=== PATIENT | female | born 1945 | race Caucasian/White ===

== ENCOUNTER 2016-08-28 20:15 | Emergency (ER) | payer MEDICARE ==
[2016-08-28 22:30] LABS: Basophils % (Auto) 0.4 % (0.0-1.8); Hematocrit 44.9 % (30.3-42.9); Hemoglobin 14.8 gm/dl (10.1-14.3); Mean Corpuscular HGB Conc 33 % (30-34); Mean Corpuscular Hemoglobin 29 pg (28-32); Mean Corpuscular Volume 88 fl (79-97); Platelet Count 234 K/mm3 (140-440); Red Cell Distribution Width 12.6 % (13.2-15.2); White Blood Count 13.7 K/mm3 (4.5-11.0)
[2016-08-28 22:47] LABS: Alanine Aminotransferase 23 units/L (7-56); Albumin 4.3 g/dL (3.9-5); Albumin/Globulin Ratio 1.2 %; Alkaline Phosphatase 78 units/L (35-129); Anion Gap 19 mmol/L; Blood Urea Nitrogen 13 mg/dL (7-17); Carbon Dioxide 24 mmol/L (22-30); Chloride 92.5 mmol/L (98-107); Glucose 134 mg/dL (65-100); Lipase 24 units/L (13-60); Potassium 3.7 mmol/L (3.6-5.0); Sodium 132 mmol/L (137-145); Total Protein 7.8 g/dL (6.3-8.2)
[2016-08-29] MEDS ORDERED: ZOFRAN ONE (00:15)
[2016-08-29 00:26] LABS: Bacteria,Urine 1+ /HPF (Negative); Bilirubin,Urine NEG (Negative); Blood,Urine MOD (Negative); Ketones,Urine 20 mg/dL (Negative); Leukocyte Esterase,Urine TR (Negative); Mucus,Urine 2+ /HPF; Nitrite,Urine NEG (Negative); Urobilinogen,Urine < 2.0 mg/dL (<2.0)
[2016-08-29 00:29] LABS: Protein,Urine >500 mg/dL (Negative)
--- NOTE | 2016-08-29 00:35 | Emergency Department Report ---
ED Abdominal Pain HPI - General Chief Complaint: Abdominal Pain Stated Complaint: STOMACH PAIN Time Seen by Provider: 08/29/16 00:30 Source: patient, family Mode of arrival: Wheelchair Limitations: No Limitations - History of Present Illness Initial Comments: This is a pleasant 71-year-old female with 24-hour history of right upper quadrant abdominal pain. She describes no radiation with this. She denies no migration as well. She states that she has had pains like this in the past but infrequently. This is the worst it is been. She states she did try some Tylenol at home without any significant improvement of her discomfort. She is still intolerance to food at home. She denies any diarrhea or vomiting associated with this. He denies any fever. No trauma is reported as well. No dysuria is reported. Rates her pain as moderate. Denies anything changes the pain.*History from a surgical standpoint is only significant for C-sections. - Related Data Previous Rx's Medication Instructions Recorded Last Taken Type HYDROcodone/APAP 5-325 [Hinckley 1 each PO Q6HR PRN #30 tablet 08/29/16 Unknown Rx 5/325] Ondansetron [Zofran TAB] 4 mg PO Q8HR PRN #10 tablet 08/29/16 Unknown Rx Allergies Allergy/AdvReac Type Severity Reaction Status Date / Time No Known Allergies Allergy Verified 08/28/16 21:47 ED Review of Systems ROS: Stated complaint: STOMACH PAIN Other details as noted in HPI Comment: All other systems reviewed and negative Constitutional: denies: chills, fever Eyes: denies: eye pain, eye discharge, vision change ENT: denies: ear pain, throat pain Respiratory: denies: cough, shortness of breath, wheezing Cardiovascular: denies: chest pain, palpitations Endocrine: no symptoms reported Gastrointestinal: abdominal pain. denies: nausea, diarrhea Genitourinary: denies: urgency, dysuria, discharge Musculoskeletal: denies: back pain, joint swelling, arthralgia Skin: denies: rash, lesions Neurological: denies: headache, weakness, paresthesias Psychiatric: denies: anxiety, depression Hematological/Lymphatic: denies: easy bleeding, easy bruising ED Past Medical Hx - Past Medical History Previous Medical History?: No - Surgical History Past Surgical History?: No - Social History Smoking Status: Never Smoker Substance Use Type: Prescribed - Medications Home Medications: Home Medications Medication Instructions Recorded Confirmed Last Taken Type HYDROcodone/APAP 5-325 [Hinckley 1 each PO Q6HR PRN #30 tablet 08/29/16 Unknown Rx 5/325] Ondansetron [Zofran TAB] 4 mg PO Q8HR PRN #10 tablet 08/29/16 Unknown Rx ED Physical Exam - General Limitations: No Limitations General appearance: alert, in no apparent distress - Head Head exam: Present: atraumatic, normocephalic - Eye Eye exam: Present: normal appearance, EOMI. Absent: scleral icterus - ENT ENT exam: Present: normal exam, normal orophraynx, mucous membranes moist - Neck Neck exam: Present: normal inspection, full ROM. Absent: meningismus, lymphadenopathy - Respiratory Respiratory exam: Present: normal lung sounds bilaterally. Absent: respiratory distress, wheezes - Cardiovascular Cardiovascular Exam: Present: regular rate, normal rhythm. Absent: systolic murmur, diastolic murmur, rubs, gallop - GI/Abdominal GI/Abdominal exam: Present: soft, tenderness (mild right upper quadrant with equivocal Hurtado sign.), normal bowel sounds. Absent: guarding, rebound - Extremities Exam Extremities exam: Present: normal inspection. Absent: tenderness, pedal edema, calf tenderness - Back Exam Back exam: Present: normal inspection - Neurological Exam Neurological exam: Present: alert, oriented X3 - Psychiatric Psychiatric exam: Present: normal affect, normal mood - Skin Skin exam: Present: warm, dry, intact, normal color. Absent: rash ED Course Vital Signs 08/28/16 08/28/16 08/28/16 21:44 23:44 23:45 Temperature 98.8 F Pulse Rate 67 79 Respiratory 18 22 Rate Blood Pressure 170/86 200/57 O2 Sat by Pulse 98 99 99 Oximetry 08/28/16 08/28/16 08/29/16 23:50 23:56 00:00 Temperature Pulse Rate 71 72 78 Respiratory 24 21 27 H Rate Blood Pressure 177/84 177/84 177/84 O2 Sat by Pulse 99 99 99 Oximetry 08/29/16 08/29/16 08/29/16 00:01 00:06 00:10 Temperature Pulse Rate 76 71 Respiratory 20 21 21 Rate Blood Pressure 182/79 182/79 O2 Sat by Pulse 100 99 98 Oximetry 08/29/16 08/29/16 08/29/16 00:16 00:20 00:26 Temperature Pulse Rate 89 78 66 Respiratory 30 H 25 H 22 Rate Blood Pressure 192/126 160/69 160/69 O2 Sat by Pulse 96 98 98 Oximetry 08/29/16 08/29/16 08/29/16 00:30 00:36 00:40 Temperature Pulse Rate 73 80 98 H Respiratory 20 21 25 H Rate Blood Pressure 165/73 165/73 165/73 O2 Sat by Pulse 97 98 99 Oximetry 08/29/16 08/29/16 08/29/16 00:45 00:50 00:56 Temperature Pulse Rate 84 81 78 Respiratory 27 H 20 21 Rate Blood Pressure 147/62 147/62 147/62 O2 Sat by Pulse 98 98 98 Oximetry 08/29/16 01:00 Temperature Pulse Rate 79 Respiratory 20 Rate Blood Pressure 144/73 O2 Sat by Pulse 97 Oximetry - Reevaluation(s) Reevaluation #1: 08/29/16 00:35 ECG at 2153 with normal sinus rhythm at 79 bpm with normal MA and QRS noted normal axis no acute ST segment elevation or depression is noted. Reevaluation #2: 08/29/16 20:07 Bedside ultrasound was performed demonstrating a relatively large structure in the gallbladder. It is somewhat interesting in that it does appear to have any solids core that does cause shadowing but then has a very translucent appearing order around this. It measures approximately 3 cm x 4 cm. The gallbladder wall itself does not demonstrate thickening there is no pericholecystic fluid noted as well, bile duct is noted to be 0.5 cm. There is a moderate-sized sonographic Hurtado's. Lab studies are noted. There is no sign of obstructive process with the labs. My mind this makes this much more consistent with a biliary colic presentation. I'm a little bit perplexed by the large lesion noted in her gallbladder. It does not appear in any way to be concerning for a cancerous lesion as stated it is completely isolated to the anterior of the gallbladder. I did give the patient the option of following up with ultrasound today and and then consideration for surgical evaluation as an outpatient. She states that she probably does give some time and see how it does SOUND WHETHER OR ARE NOT. I'M NOT AGAINST THIS. THIS TIME HER ABDOMEN IS NOT SURGICAL. DID CAUTION HER THAT AT ANY POINT THIS COULD BE LESION BECOMES OBSTRUCTIVE IN NATURE WHICH IT WOULD BECOME GNOSTICIST URGENT/EMERGENT ISSUE. SHE IS AGREEABLE WITH RETURNING IF THERE IS ANY QUESTIONABLE PROBLEMS. SHE HAD THIS TIME WILL BE trialing a low-fat diet. Safe for home. ED Medical Decision Making - Lab Data Result diagrams: 08/28/16 22:14 08/28/16 22:14 Critical care attestation.: If time is entered above; I have spent that time in minutes in the direct care of this critically ill patient, excluding procedure time. ED Disposition Clinical Impression: Biliary colic Disposition: DISCHARGED TO HOME OR SELFCARE Is pt being admited?: No Does the pt Need Aspirin: No Condition: Stable Instructions: Biliary Colic (ED) Additional Instructions: Eat a low-fat diet. Follow-up with the surgeon if your pain comes more frequently or without fatty meals. Prescriptions: HYDROcodone/APAP 5-325 [Hinckley 5/325] 1 each PO Q6HR PRN #30 tablet PRN Reason: Pain Ondansetron [Zofran TAB] 4 mg PO Q8HR PRN #10 tablet PRN Reason: Nausea Referrals: OTILIO POLANCO MD [Primary Care Provider] - 3-5 Days REBA GUZMÁN MD [Staff Physician] - 3-5 Days Time of Disposition: 00:54
[2016-08-29] MEDS ORDERED: ZOFRAN IV ONE (01:08)
[2016-08-29 01:09] VITALS: BP 144/73
== END 2016-08-29 01:09 | disposition home or self-care (01) ==
LOC: ED 20:15
DX: K80.50 Calculus of bile duct without cholangitis or cholecystitis without obstruction (principal)
CPT/HCPCS: 36415; 80053; 81001; 83690; 85025; 93005; 93010; 96374; 99283; J2405